=== PATIENT | male | born 1955 | race Caucasian/White ===

== ENCOUNTER → 2017-07-24 | Outpatient (CLI) | payer MEDICARE ==
--- NOTE | ~2017-07-24 | SS ---
ADMIT: 07/24/2017 RM/LOC: [facility] MR#: [id number] [address] [address] [place] [address] Sleep Study SEX: M AGE: 61 : 1955 STUDY DATE: 07/24/2017 CLINICAL HISTORY: A 61-year-old male with known history of obstructive sleep apnea is in the sleep lab for CPAP titration. TECHNICAL DESCRIPTION: CPAP titration performed on night of 07/24/2017, attended by a trained product/device technologist. TITRATION FINDINGS: TITRATION DESCRIPTION: The patient was titrated from 7 cm CPAP to 9 cm of CPAP. An Eson two nasal mask of size medium was used as interface. SLEEP: Total time in bed is 412.5 minutes, total sleep time 215.5 minutes, sleep efficiency 52.2%. 57.5% of time was spent in stage 2 sleep and 25.9% of time was spent in stage REM. BREATHING: There were few central apneas and obstructive hypopneas noted during CPAP titration at lower CPAP pressures. During the study, there were 19 central apneas and 12 obstructive hypopneas noted. On CPAP at 9 cm, the patient was seen in REM sleep in lateral position with excellent resolution of obstructive and central events. At 9 cm, the patient was also seen in non-REM sleep in supine position. OXYGEN SATURATION: Mean sleeping 91%. CARDIAC: Average heart rate is 64 beats per minute. MOVEMENTS/POSITION: During the study, the patient slept in supine and lateral position. No significant leg movements. RECOMMENDATIONS: Recommend using CPAP at 9 cm with mask as mentioned above. Recommend losing weight, avoiding sedatives and alcohol, refrain from driving if excessively sleepy. Clinical correlation needed. CPAP compliance followup is recommended. Vitaly Mckeon MD/ eliz JOB #: [id number] CC: Yousuf Jordan MD, Attending Physician Yousuf Jordan MD, Family Physician Yousuf Jordan MD
== END | disposition home or self-care (01) ==
LOC: RESC 19:53
DX: G47.33 Obstructive sleep apnea (adult) (pediatric) (principal)